=== PATIENT | female | born 1970 | race Caucasian/White ===

== ENCOUNTER 2022-10-28 08:45 | Observation (INO) | payer BC ==
[2022-10-22 13:32] LABS: Absolute Lymphocytes (CBC) 3.9 K/uL (0.7-4.9); Hematocrit 45.1 % (36.0-45.0); Lymphocytes % 34.8 % (15.3-44.8); MCV 87.4 fL (80-100); MPV 8.3 fL (7.6-11.3); RBC Red Blood Cell Count 5.17 M/uL (3.86-4.86)
[2022-10-22 13:38] LABS: Specific Gravity 1.017 (1.005-1.030); Urine Bacteria None Seen /HPF (<20); Urine Bilirubin NEGATIVE (Negative); Urine Blood Trace (Negative); Urine Clarity Clear (Clear); Urine Color Light-Yellow (Yellow); Urine Glucose NEGATIVE (Negative); Urine Mucus Slight /HPF (None Seen); Urine Protein NEGATIVE (Negative); Urine RBC <5 /HPF (None Seen); Urine Urobilinogen Normal (Normal); Urine pH 5.5 (5.0-7.0)
[2022-10-22 13:44] LABS: Protime INR 0.91
[2022-10-28] MEDS ORDERED: CEFAZOLIN SODIUM 2 GM/VIAL ONE (09:14)
[2022-10-28] MEDS ORDERED: Ringers Lactate 1,000 ML IV ONE ×2 (09:14→15:20)
[2022-10-28 09:25] LABS: SARS-CoV-2 Antigen Rapid Res Negative (Negative)
[2022-10-28] MEDS ORDERED: propofoL 200 MG/20 ML VIAL IV ONE (10:04)
[2022-10-28] MEDS ORDERED: FENTANYL CITR 250 MCG/5 ML ONE (10:05)
[2022-10-28] MEDS ORDERED: MIDAZOLAM HCL 2 MG/2 ML INJ ONE ×2 (10:05→17:09)
[2022-10-28] MEDS ORDERED: LIDOCAINE 2% MPF 5 ML VIAL ONE (10:05)
[2022-10-28] MEDS ORDERED: KETAMINE HCL 500 MG/5 ML VIAL ONE (10:05)
[2022-10-28] MEDS ORDERED: dexAMETHasone 10 MG/ML VIAL ONE (10:05)
[2022-10-28] MEDS ORDERED: NS 0.9% VIAL 20 ML ONE (10:05)
[2022-10-28] MEDS ORDERED: ROCURONIUM 50 MG/5 ML VIAL IV ONE ×2 (10:05→14:11)
[2022-10-28] MEDS ORDERED: ONDANSETRON 4 MG/2 ML VIAL ONE (10:06)
[2022-10-28] MEDS ORDERED: NA CHLORIDE 0.9% 100 ML IV ONE (10:27)
[2022-10-28] MEDS: VASOPRESSIN 20 UNIT/ML VIAL ONE ×4 (11:14→13:55)
[2022-10-28] MEDS: CEFAZOLIN SODIUM 1 GM/VIAL ONE ×2 (11:14→13:25)
[2022-10-28] MEDS ORDERED: NA CHLORIDE 0.9% 1,000 ML ONE (11:45)
[2022-10-28] MEDS ORDERED: LIDOCAINE 1% W/EPI 1:100,000 30 ML VIAL ONE (12:41)
[2022-10-28] MEDS: Ringers Lactate 1,000 ML IV ONE ×2 (13:40→13:45)
[2022-10-28] MEDS ORDERED: FENTANYL CITR 100 MCG/2 ML ONE (15:02)
[2022-10-28] MEDS ORDERED: NEOSTIGMINE 1 MG/ML -10 ML VIAL ONE (15:38)
[2022-10-28] MEDS ORDERED: GLYCOPYRROLATE 0.2 MG/ML SYR ONE (15:38)
[2022-10-28] MEDS ORDERED: PROMETHAZINE INJ 25 MG/ML AMP IV PRN (16:32)
[2022-10-28] MEDS ORDERED: MORPHINE 2 MG/ML SYR IV PRN (16:32)
[2022-10-28] MEDS: HYDROMORPHONE HCL 1 MG/ML INJ ONE ×4 (16:44→16:59)
--- NOTE | 2022-10-28 16:45 | P.BOP ---
Preoperative diagnosis: Stage 3 posterior wall defect, posterior enterocele, LEONEL Postoperative diagnosis: same, apical prolapse and perineocele Primary procedure: Post approach bilateral SSLF colpopexy, post wall, enterocele repairs Secondary procedure: perineocele repair, TO MUS (solyx mini sling) cystoscopy Medicaid Billing Clerk: Deidre Tolbret Estimated blood loss: 150 Specimen: none Findings: -1/-1/-3/6/thi/7/+1/+2/na, perineocele, Left UO Ballooning Anesthesia: General Complications: None Drain(s): Urinary catheter Implants: [place] dermis 8x6cm graft, TO-MUS (solyx) Fluids & blood products: UO 300.LR 1500 Transferred to: Recovery Room Condition: Good
[2022-10-28] MEDS ORDERED: Ringers Lactate 1,000 ML IV SCH (17:00)
--- OUTSIDE RECORDS SUMMARY | 2022-10-28 17:19 | XMS REPORT | Continuity of Care Document ---
:1970 Author Organization [facility] t Address [address] [place] [address] Care Team Providers Name Role Phone DENA Attending Clinician Unavailable Ki Oliva Attending Clinician [phone] DENA Admitting Clinician Unavailable Payers Payer Name Policy Type Policy Number Effective Date Expiration Date S [place] [id number] 2021 00:00:00 [facility] [id number] (EPO) Problems Condition Condition Condition Status Onset Resolution Last Treating Co mments Source Name Details Category Date Date Treatment Clinician Date Allergic Allergic Problem Active Sween y rhinitis Rhinitis 6-14 Commun i 00:00: ty 00 [facility] Gastroesop Gastroesop Problem Active S weeny hageal hageal 6-14 Communi reflux Reflux 00:00: ty disease Disease 00 Hospita without without l esophagiti Esophagiti Cl inics s s Body mass Body Mass Problem Active [facility] index 30+ Index 30+ 1-25 Comm uni - obesity - Obesity 00:00: ty 00 Hospita l Clinics Essential Essential Problem Active [facility] hypertensi Hypertensi 6-18 Co mmuni on on 00:00: ty 00 Hospita l Clinics Allergies, Adverse Reactions, Alerts Allergy Allergy Status Severity Reaction(s) Onset Inactive Treating Comm ents Source Name Type Date Date Clinician Paroxeti Allergy Active Moderate Dizziness Sw eeny ne to Communi substan ty e Hospita l Clinics Gentamic Allergy Active Moderate Eye swelling [facility] in to Communi substan ty e [facility]osp[facility] Clinics Lisinopr Allergy Active Mild to Rash [facility] il to moderate Communi substan ty e Hospita l Clinics Social History Smoking Status Start Date Stop Date Source Light Tobacco Smoker [facility] Medications Ordered Filled Start Stop Current Ordering Indication Dosage Frequency Signature Comments Components Source Medication Medication Date Date Medication? Clinician (SIG) Name Name Allergy Allergy No 2spray( Q1D Allergy [facility] Relief Relief s) Relief Communi (fluticason (fluticason (fluticaso ty e) 50 e) 50 ne) 50 Hospita mcg/actuati mcg/actuati mcg/actuat l on nasal on nasal ion nasal Cl inics spray,suspe spray,suspe spray,susp nsion Delta nsion Delta ension 2 sprays 2 sprays Delta 2 every day every day sprays by by every day intranasal intranasal by route. route. intranasal route. amlodipine amlodipine No 1 Q1D amlodipine [facility] 10 mg 10 mg 10 mg Communi tablet Take tablet Take tablet ty 1 tablet 1 tablet Take 1 Hospi ta every day every day tablet l by oral by oral every day Clin ics route. route. by oral route. Flucelvax Flucelvax No Flucelvax [facility] [place] Quad Quad Quad [facility] ty (PF) 60 mcg (PF) 60 mcg (PF) 60 Hospita (15 mcg x (15 mcg x mcg (15 l 4)/0.5 mL 4)/0.5 mL mcg x Clin ics IM syringe IM syringe 4)/0.5 mL PHARMACY PHARMACY IM syringe ADMINISTERE ADMINISTERE PHARMACY D D ADMINISTER ED omeprazole omeprazole No omeprazole [facility] prn prn prn [facility] Tylenol prn Tylenol prn No Tylenol [facility]n [facility] Allergy Allergy No 2spray( Q1D Allergy Swe jag[facility] Relief Relief s) Relief Communi (fluticason (fluticason (fluticaso ty e) 50 e) 50 ne) 50 Hospita mcg/actuati mcg/actuati mcg/actuat l on nasal on nasal ion nasal Cl inics spray,suspe spray,suspe spray,susp nsion Delta nsion Delta ension 2 sprays 2 sprays Delta 2 every day every day sprays by by every day intranasal intranasal by route. route. intranasal route. amlodipine amlodipine No 1 Q1D amlodipine [facility] 10 mg 10 mg 10 mg Communi tablet Take tablet Take tablet ty 1 tablet 1 tablet Take 1 Hospi ta every day every day tablet l by oral by oral every day Clin ics route. route. by oral route. Flucelvax Flucelvax No Flucelvax [place] Quad Quad Jaida [facility] ty (PF) 60 mcg (PF) 60 mcg (PF) 60 Hospita (15 mcg x (15 mcg x mcg (15 l 4)/0.5 mL 4)/0.5 mL mcg x Clin ics IM syringe IM syringe 4)/0.5 mL PHARMACY PHARMACY IM syringe ADMINISTERE ADMINISTERE PHARMACY D D ADMINISTER ED omeprazole omeprazole No omeprazole [place] prn prn prn Communi ty [facility] Tylenol prn Tylenol prn No Tylenol [place] prn Communi ty [facility] Allergy Allergy No 2spray( Q1D Allergy Swe jag[facility] Relief Relief s) Relief Communi (fluticason (fluticason (fluticaso ty e) 50 e) 50 ne) 50 Hospita mcg/actuati mcg/actuati mcg/actuat l on nasal on nasal ion nasal Cl inics spray,suspe spray,suspe spray,susp nsion Delta nsion Delta ension 2 sprays 2 sprays Delta 2 every day every day sprays by by every day intranasal intranasal by route. route. intranasal route. amlodipine amlodipine No 1 Q1D amlodipine [facility] 10 mg 10 mg 10 mg Communi tablet Take tablet Take tablet ty 1 tablet 1 tablet Take 1 Hospi ta every day every day tablet l by oral by oral every day Clin ics route. route. by oral route. Flucelvax Flucelvax No Flucelvax [place] Quad Quad Jaida [facility] ty (PF) 60 mcg (PF) 60 mcg (PF) 60 Hospita (15 mcg x (15 mcg x mcg (15 l 4)/0.5 mL 4)/0.5 mL mcg x Clin ics IM syringe IM syringe 4)/0.5 mL PHARMACY PHARMACY IM syringe ADMINISTERE ADMINISTERE PHARMACY D D ADMINISTER ED omeprazole omeprazole No omeprazole [place] prn prn prn Communi ty [facility] Tylenol prn Tylenol prn No Tylenol [place] prn Communi ty [facility] Allergy Allergy No 2spray( Q1D Allergy Swe jag[facility] Relief Relief s) Relief Communi (fluticason (fluticason (fluticaso ty e) 50 e) 50 ne) 50 Hospita mcg/actuati mcg/actuati mcg/actuat l on nasal on nasal ion nasal Cl inics spray,suspe spray,suspe spray,susp nsion Delta nsion Delta ension 2 sprays 2 sprays Delta 2 every day every day sprays by by every day intranasal intranasal by route. route. intranasal route. amlodipine amlodipine No amlodipine [facility] 10 mg 10 mg 10 mg Communi tablet TAKE tablet TAKE tablet ty 1 TABLET BY 1 TABLET BY TAKE 1 [facility] MOUTH EVERY MOUTH EVERY TABLET BY l DAY DAY MOUTH Clinics EVERY DAY omeprazole omeprazole No omeprazole [facility] [place] prn prn prn [facility] Tylenol prn Tylenol prn No Tylenol [place] prn [facility] Allergy Allergy No 2spray( Q1D Allergy Swe [facility] Relief Relief s) Relief Communi (fluticason (fluticason (fluticaso ty e) 50 e) 50 ne) 50 Hospita mcg/actuati mcg/actuati mcg/actuat l on nasal on nasal ion nasal Cl inics spray,suspe spray,suspe spray,susp nsion Delta nsion Delta ension 2 sprays 2 sprays Delta 2 every day every day sprays by by every day intranasal intranasal by route. route. intranasal route. amlodipine amlodipine No amlodipine [facility] 10 mg 10 mg 10 mg Communi tablet TAKE tablet TAKE tablet ty 1 TABLET BY 1 TABLET BY TAKE 1 Hospita MOUTH EVERY MOUTH EVERY TABLET BY l DAY DAY MOUTH Clinics EVERY DAY dexamethaso dexamethaso No 10mg dexamethas [facility] ne sodium ne sodium one sodium Communi phosphate phosphate phosphate ty 10 mg/mL 10 mg/mL 10 mg/mL [facility] injection injection injection l solution solution solution Cli nics Take 10 mg Take 10 mg Take 10 mg by by by injection injection injection route. route. route. fenofibrate fenofibrate No 1capsul Q1D fenofibrat [facility] micronized micronized e(s) e Com angela 134 mg 134 mg micronized ty capsule capsule 134 mg Hospita Take 1 Take 1 capsule l capsule capsule Take 1 Clinics every day every day capsule by oral by oral every day route for route for by oral 10 days. 10 days. route for 10 days. hydroxychlo hydroxychlo No hydroxychl [facility] roquine 200 roquine 200 oroquine Communi mg tablet 2 mg tablet 2 200 mg ty po first po first tablet 2 [facility] dose then 1 dose then 1 po first l po bid x 5 po bid x 5 dose then Clinics days days 1 po bid x 5 days ivermectin ivermectin No 3 ivermectin [facility] 3 mg tablet 3 mg tablet 3 mg C ommuni Take 3 Take 3 tablet ty tablets by tablets by Take 3 H ospita oral route oral route tablets by l for 5 days. for 5 days. oral route Clinics for 5 days. Kenalog 40 Kenalog 40 No 40mg Kenalog 40 [facility] mg/mL mg/mL mg/mL Communi suspension suspension suspension ty for for for Hospita injection injection injection l Take 40 mg Take 40 mg Take 40 mg Clinics by by by injection injection injection route. route. route. omeprazole omeprazole No omeprazole [facility] prn prn prn Communi ty Hospita l Clinics prednisone prednisone No prednisone [facility] 20 mg 20 mg 20 mg Communi tablet 3 PO tablet 3 PO tablet 3 ty First day, First day, PO First Hospita 2 PO Second 2 PO Second day, 2 PO l Day, 1 PO Day, 1 PO Second Cli nics qDay until qDay until Day, 1 PO finished finished qDay until finished Tylenol prn Tylenol prn No Tylenol [facility] prn Communi ty Hospita l Clinics Zithromax Zithromax No Zithromax [facility] Z-Suhas 250 Z-Suhas 250 Z-Suhas 250 Communi mg tablet mg tablet mg tablet ty TAKE 2 TAKE 2 TAKE 2 Hospita TABLETS TABLETS TABLETS l (500 MG) BY (500 MG) BY (500 MG) Clinics ORAL ROUTE ORAL ROUTE BY ORAL ONCE DAILY ONCE DAILY ROUTE ONCE FOR 1 DAY FOR 1 DAY DAILY FOR THEN 1 THEN 1 1 DAY THEN TABLET (250 TABLET (250 1 TABLET MG) BY ORAL MG) BY ORAL (250 MG) ROUTE ONCE ROUTE ONCE BY ORAL DAILY FOR 4 DAILY FOR 4 ROUTE ONCE DAYS DAYS DAILY FOR 4 DAYS amlodipine amlodipine No amlodipine [facility] 10 mg 10 mg 10 mg Communi tablet TAKE tablet TAKE tablet ty ONE (1) ONE (1) TAKE ONE Hospi ta TABLET(S) TABLET(S) (1) l BY MOUTH BY MOUTH TABLET(S) Cl inics ONCE A DAY. ONCE A DAY. BY MOUTH ONCE A DAY. Flonase Flonase No 1spray( Q1D Flonase [facility] Allergy Allergy s) Allergy Commun i Relief 50 Relief 50 Relief 50 ty mcg/actuati mcg/actuati mcg/actuat Hospita on nasal on nasal ion nasal l spray,suspe spray,suspe spray,susp Clinics nsion Delta nsion Delta ension 1 spray 1 spray Delta 1 every day every day spray by by every day intranasal intranasal by route. route. intranasal route. omeprazole omeprazole No omeprazole [facility] prn prn prn Communi ty Hospita l Clinics Tylenol prn Tylenol prn No Tylenol [facility] prn Communi ty Hospita l Clinics amlodipine amlodipine No amlodipine [facility] 10 mg 10 mg 10 mg Communi tablet TAKE tablet TAKE tablet ty ONE (1) ONE (1) TAKE ONE Hospi ta TABLET(S) TABLET(S) (1) l BY MOUTH BY MOUTH TABLET(S) Cl inics ONCE A DAY. ONCE A DAY. BY MOUTH ONCE A DAY. amoxicillin amoxicillin No 1 Q12H amoxicilli [facility] [phone] 875 Communi mg-potassiu mg-potassiu mg-potassi ty m m um Hospita clavulanate clavulanate clavulanat l 125 mg 125 mg e 125 mg Clinics tablet Take tablet Take tablet 1 tablet 1 tablet Take 1 every 12 every 12 tablet hours by hours by every 12 oral route. oral route. hours by oral route. estradiol estradiol No estradiol [facility] 0.01% (0.1 0.01% (0.1 0.01% (0.1 Communi mg/gram) mg/gram) mg/gram) ty vaginal vaginal vaginal Hospit a cream cream cream l INSERT 0.5 INSERT 0.5 INSERT 0.5 Clinics GRAM(S) IN GRAM(S) IN GRAM(S) IN VAGINA VAGINA VAGINA THREE TIMES THREE TIMES THREE WEEKLY. WEEKLY. TIMES WEEKLY. Flonase Flonase No 1spray( Q1D Flonase [facility] Allergy Allergy s) Allergy Commun i Relief 50 Relief 50 Relief 50 ty mcg/actuati mcg/actuati mcg/actuat Hospita on nasal on nasal ion nasal l spray,suspe spray,suspe spray,susp Clinics nsion Delta nsion Delta ension 1 spray 1 spray Delta 1 every day every day spray by by every day intranasal intranasal by route. route. intranasal route. omeprazole omeprazole No omeprazole [facility] prn prn prn Communi ty Hospita l Clinics Tylenol prn Tylenol prn No Tylenol [facility] prn Communi ty Hospita l Clinics amlodipine amlodipine No amlodipine [facility] 10 mg 10 mg 10 mg Communi tablet TAKE tablet TAKE tablet ty ONE (1) ONE (1) TAKE ONE Hospi ta TABLET(S) TABLET(S) (1) l BY MOUTH BY MOUTH TABLET(S) Cl inics ONCE A DAY. ONCE A DAY. BY MOUTH ONCE A DAY. estradiol estradiol No estradiol [facility] 0.01% (0.1 0.01% (0.1 0.01% (0.1 Communi mg/gram) mg/gram) mg/gram) ty vaginal vaginal vaginal Hospit a cream cream cream l INSERT 0.5 INSERT 0.5 INSERT 0.5 Clinics GRAM(S) IN GRAM(S) IN GRAM(S) IN VAGINA VAGINA VAGINA THREE TIMES THREE TIMES THREE WEEKLY. WEEKLY. TIMES WEEKLY. Flonase Flonase No 1spray( Q1D Flonase [facility] Allergy Allergy s) Allergy Commun i Relief 50 Relief 50 Relief 50 ty mcg/actuati mcg/actuati mcg/actuat Hospita on nasal on nasal ion nasal l spray,suspe spray,suspe spray,susp Clinics nsion Delta nsion Delta ension 1 spray 1 spray Delta 1 every day every day spray by by every day intranasal intranasal by route. route. intranasal route. omeprazole omeprazole No omeprazole [facility] prn prn prn Communi ty Hospita l Clinics Tylenol prn Tylenol prn No Tylenol [facility] prn Communi ty Hospita l Clinics Allergy Allergy No 2spray( Q1D Allergy [facility] Relief Relief s) Relief Communi (fluticason (fluticason (fluticaso ty e) 50 e) 50 ne) 50 Hospita mcg/actuati mcg/actuati mcg/actuat l on nasal on nasal ion nasal Cl inics spray,suspe spray,suspe spray,susp nsion Delta nsion Delta ension 2 sprays 2 sprays Delta 2 every day every day sprays by by every day intranasal intranasal by route. route. intranasal route. amlodipine amlodipine No amlodipine [facility] 5 mg tablet 5 mg tablet 5 mg C om[facility]i TAKE 1 TAKE 1 tablet ty TABLET BY TABLET BY TAKE 1 [facility] MOUTH EVERY MOUTH EVERY TABLET BY l DAY DAY MOUTH Clinics EVERY DAY Flucelvax Flucelvax No Flucelvax [facility] Quad Quad Quad [facility] ty (PF) 60 mcg (PF) 60 mcg (PF) 60 Hospita (15 mcg x (15 mcg x mcg (15 l 4)/0.5 mL 4)/0.5 mL mcg x Clin ics IM syringe IM syringe 4)/0.5 mL PHARMACY PHARMACY IM syringe ADMINISTERE ADMINISTERE PHARMACY D D ADMINISTER ED omeprazole omeprazole No omeprazole [facility] prn prn prn Communi ty [facility] Tylenol prn Tylenol prn No Tylenol [facility] Allergy Allergy No 2spray( Q1D Allergy Swe [facility] Relief Relief s) Relief Communi (fluticason (fluticason (fluticaso ty e) 50 e) 50 ne) 50 Hospita mcg/actuati mcg/actuati mcg/actuat l on nasal on nasal ion nasal Cl inics spray,suspe spray,suspe spray,susp nsion Delta nsion Delta ension 2 sprays 2 sprays Delta 2 every day every day sprays by by every day intranasal intranasal by route. route. intranasal route. amlodipine amlodipine No amlodipine [facility] 5 mg tablet 5 mg tablet 5 mg C om[facility]i TAKE 1 TAKE 1 tablet ty TABLET BY TABLET BY TAKE 1 [facility] MOUTH EVERY MOUTH EVERY TABLET BY l DAY DAY MOUTH Clinics EVERY DAY Flucelvax Flucelvax No Flucelvax [facility] [place] Quad Quad Quad [facility] ty (PF) 60 mcg (PF) 60 mcg (PF) 60 Hospita (15 mcg x (15 mcg x mcg (15 l 4)/0.5 mL 4)/0.5 mL mcg x Clin ics IM syringe IM syringe 4)/0.5 mL PHARMACY PHARMACY IM syringe ADMINISTERE ADMINISTERE PHARMACY D D ADMINISTER ED omeprazole omeprazole No omeprazole [facility] prn prn prn Communi [facility] Tylenol prn Tylenol prn No Tylenol [facility] prn [facility] Allergy Allergy No 2spray( Q1D Allergy Swe jag[facility] Relief Relief s) Relief Communi (fluticason (fluticason (fluticaso ty e) 50 e) 50 ne) 50 Hospita mcg/actuati mcg/actuati mcg/actuat l on nasal on nasal ion nasal Cl inics spray,suspe spray,suspe spray,susp nsion Delta nsion Delta ension 2 sprays 2 sprays Delta 2 every day every day sprays by by every day intranasal intranasal by route. route. intranasal route. amlodipine amlodipine No amlodipine [facility] 5 mg tablet 5 mg tablet 5 mg C om[facility]i TAKE 1 TAKE 1 tablet ty TABLET BY TABLET BY TAKE 1 [facility] MOUTH EVERY MOUTH EVERY TABLET BY l DAY DAY MOUTH Clinics EVERY DAY Flucelvax Flucelvax No Flucelvax [facility] [place] Quad Quad Quad [facility] ty (PF) 60 mcg (PF) 60 mcg (PF) 60 Hospita (15 mcg x (15 mcg x mcg (15 l 4)/0.5 mL 4)/0.5 mL mcg x Clin ics IM syringe IM syringe 4)/0.5 mL PHARMACY PHARMACY IM syringe ADMINISTERE ADMINISTERE PHARMACY D D ADMINISTER ED omeprazole omeprazole No omeprazole [facility] prn prn prn [facility] Tylenol prn Tylenol prn No Tylenol [facility] prn [facility] Allergy Allergy No 2spray( Q1D Allergy Swe jag[facility] Relief Relief s) Relief [facility] (fluticason (fluticason (fluticaso ty e) 50 e) 50 ne) 50 Hospita mcg/actuati mcg/actuati mcg/actuat l on nasal on nasal ion nasal Cl inics spray,suspe spray,suspe spray,susp nsion Delta nsion Delta ension 2 sprays 2 sprays Delta 2 every day every day sprays by by every day intranasal intranasal by route. route. intranasal route. amlodipine amlodipine No amlodipine [facility] 5 mg tablet 5 mg tablet 5 mg C om[facility]i TAKE 1 TAKE 1 tablet ty TABLET BY TABLET BY TAKE 1 [facility] MOUTH EVERY MOUTH EVERY TABLET BY l DAY DAY MOUTH Clinics EVERY DAY Flucelvax Flucelvax No Flucelvax [facility] [place] Quad Quad Quad Communi ty (PF) 60 mcg (PF) 60 mcg (PF) 60 Hospita (15 mcg x (15 mcg x mcg (15 l 4)/0.5 mL 4)/0.5 mL mcg x Clin ics IM syringe IM syringe 4)/0.5 mL PHARMACY PHARMACY IM syringe ADMINISTERE ADMINISTERE PHARMACY D D ADMINISTER ED omeprazole omeprazole No omeprazole [facility] prn prn prn Communi ty [facility]ics Tylenol prn Tylenol prn No Tylenol [facility] [place] prn Communi ty [facility] l Clinics Immunizations Ordered Immunization Filled Immunization Date Status Commen ts Source Name Name SARS-COV-2 SARS-COV-2 2021-04-09 Completed [facility] Communi ty (COVID-19) vaccine, (COVID-19) vaccine, 00:00:00 Hospital Clinics UNSPECIFIED UNSPECIFIED SARS-COV-2 SARS-COV-2 2021-04-09 Completed [facility] Communi ty (COVID-19) vaccine, (COVID-19) vaccine, 00:00:00 [facility] UNSPECIFIED UNSPECIFIED SARS-COV-2 SARS-COV-2 2021-04-09 Completed [place] Communi ty (COVID-19) vaccine, (COVID-19) vaccine, 00:00:00 [facility] UNSPECIFIED UNSPECIFIED COVID-19 COVID-19 2021-04-09 Completed [place] Communi ty (SARS-COV-2) (SARS-COV-2) 00:00:00 [facility] linics vaccine, unspecified vaccine, unspecified COVID-19 COVID-19 2021-04-09 Completed [place] Communi ty (SARS-COV-2) (SARS-COV-2) 00:00:00 [facility] linics vaccine, unspecified vaccine, unspecified COVID-19 COVID-19 2021-04-09 Completed [place] Communi ty (SARS-COV-2) (SARS-COV-2) 00:00:00 [facility] linics vaccine, unspecified vaccine, unspecified COVID-19 COVID-19 2021-04-09 Completed [place] Communi ty (SARS-COV-2) (SARS-COV-2) 00:00:00 [facility] linics vaccine, unspecified vaccine, unspecified COVID-19 COVID-19 2021-04-09 Completed [place] Communi ty (SARS-COV-2) (SARS-COV-2) 00:00:00 [facility] linics vaccine, unspecified vaccine, unspecified SARS-COV-2 SARS-COV-2 2021-03-09 Completed [place] Communi ty (COVID-19) vaccine, (COVID-19) vaccine, 00:00:00 Hospital Clinics UNSPECIFIED UNSPECIFIED SARS-COV-2 SARS-COV-2 2021-03-09 Completed [place] Communi ty (COVID-19) vaccine, (COVID-19) vaccine, 00:00:00 [facility] UNSPECIFIED UNSPECIFIED SARS-COV-2 SARS-COV-2 2021-03-09 Completed [place] Communi ty (COVID-19) vaccine, (COVID-19) vaccine, 00:00:00 [facility] UNSPECIFIED UNSPECIFIED COVID-19 COVID-19 2021-03-09 Completed [place] Communi ty (SARS-COV-2) (SARS-COV-2) 00:00:00 [facility] linics vaccine, unspecified vaccine, unspecified COVID-19 COVID-19 2021-03-09 Completed [place] Communi ty (SARS-COV-2) (SARS-COV-2) 00:00:00 [facility] linics vaccine, unspecified vaccine, unspecified COVID-19 COVID-19 2021-03-09 Completed [place] Communi ty (SARS-COV-2) (SARS-COV-2) 00:00:00 [facility] linics vaccine, unspecified vaccine, unspecified COVID-19 COVID-19 2021-03-09 Completed [place] Communi ty (SARS-COV-2) (SARS-COV-2) 00:00:00 [facility] linics vaccine, unspecified vaccine, unspecified COVID-19 COVID-19 2021-03-09 Completed [place] Communi ty (SARS-COV-2) (SARS-COV-2) 00:00:00 [facility] linics vaccine, unspecified vaccine, unspecified influenza, influenza, 2020-07-21 Completed [facility] Communi ty injectable, injectable, 00:00:00 Hospital Cli nics quadrivalent quadrivalent influenza, influenza, 2020-07-21 Completed [place] Communi ty injectable, injectable, 00:00:00 Hospital Cli nics quadrivalent quadrivalent influenza, influenza, 2020-07-21 Completed [place] Communi ty injectable, injectable, 00:00:00 Hospital Cli nics quadrivalent quadrivalent influenza, influenza, 2020-07-21 Completed [place] [facility] Communi ty injectable, injectable, 00:00:00 Hospital Cli nics quadrivalent quadrivalent influenza, influenza, 2020-07-21 Completed [place] Communi ty injectable, injectable, 00:00:00 Hospital Cli nics quadrivalent quadrivalent influenza, influenza, 2020-07-21 Completed [place] Communi ty injectable, injectable, 00:00:00 Hospital Cli nics quadrivalent quadrivalent influenza, influenza, 2020-07-21 Completed [place] Communi ty injectable, injectable, 00:00:00 Hospital Cli nics quadrivalent quadrivalent influenza, influenza, 2020-07-21 Completed [place] Communi ty injectable, injectable, 00:00:00 Hospital Cli nics quadrivalent quadrivalent influenza, influenza, 2020-07-21 Completed [place] Communi ty injectable, injectable, 00:00:00 Hospital Cli nics quadrivalent quadrivalent influenza, influenza, 2020-07-21 Completed [place] Communi ty injectable, injectable, 00:00:00 Hospital Cli nics quadrivalent quadrivalent influenza, influenza, 2020-07-21 Completed [place] Communi ty injectable, injectable, 00:00:00 Hospital Cli nics quadrivalent quadrivalent influenza, influenza, 2020-07-21 Completed [place] Communi ty injectable, injectable, 00:00:00 Hospital Cli nics quadrivalent quadrivalent Vital Signs Vital Name Observation Time Observation Value Comments Source BP Diastolic 2022-10-21 00:00:00 82 mm[Hg] [facility] Height 2022-10-21 00:00:00 60 [in_i] [facility] BP Systolic 2022-10-21 00:00:00 124 mm[Hg] [facility] BP Diastolic 2022-10-14 00:00:00 86 mm[Hg] [facility] Height 2022-10-14 00:00:00 60 [in_i] [facility] BMI (Body Mass 2022-10-14 00:00:00 33.2 kg/m2 [facility] BP Systolic 2022-10-14 00:00:00 124 mm[Hg] [facility] Body Weight 2022-10-14 00:00:00 2720 [oz_av] [facility] BP Diastolic 2022-04-15 00:00:00 84 mm[Hg] [facility] Height 2022-04-15 00:00:00 60 [in_i] [facility] BMI (Body Mass 2022-04-15 00:00:00 33.6 kg/m2 [facility]) [facility] BP Systolic 2022-04-15 00:00:00 132 mm[Hg] [facility] Body Weight 2022-04-15 00:00:00 2752 [oz_av] [facility] Height 2021-11-07 00:00:00 60 [in_i] [facility] BP Diastolic 2021-10-08 00:00:00 72 mm[Hg] [facility] Height 2021-10-08 00:00:00 60 [in_i] [facility] BMI (Body Mass 2021-10-08 00:00:00 32.6 kg/m2 [facility]) [facility] BP Systolic 2021-10-08 00:00:00 132 mm[Hg] [facility] Body Weight 2021-10-08 00:00:00 2672 [oz_av] [facility] BP Diastolic 2021-04-09 00:00:00 74 mm[Hg] [facility] Height 2021-04-09 00:00:00 60 [in_i] [facility] BMI (Body Mass 2021-04-09 00:00:00 32.6 kg/m2 [facility] Clinic s BP Systolic 2021-04-09 00:00:00 132 mm[Hg] [facility] Body Weight 2021-04-09 00:00:00 2672 [oz_av] [facility] BP Diastolic 2021-02-25 00:00:00 96 mm[Hg] [facility] [facility] Height 2021-02-25 00:00:00 60 [in_i] [facility] BMI (Body Mass 2021-02-25 00:00:00 32.7 kg/m2 [facility]) [facility] BP Systolic 2021-02-25 00:00:00 148 mm[Hg] [facility] Body Weight 2021-02-25 00:00:00 2680 [oz_av] [facility] BP Diastolic 2020-12-24 00:00:00 74 mm[Hg] [facility] Height 2020-12-24 00:00:00 60 [in_i] [facility] BMI (Body Mass 2020-12-24 00:00:00 32 kg/m2 [facility] BP Systolic 2020-12-24 00:00:00 114 mm[Hg] [facility] Body Weight 2020-12-24 00:00:00 2624 [oz_av] [facility] BP Diastolic 2020-11-26 00:00:00 84 mm[Hg] [facility] Height 2020-11-26 00:00:00 60 [in_i] [facility] s BMI (Body Mass 2020-11-26 00:00:00 31.8 kg/m2 [facility]) [facility] BP Systolic 2020-11-26 00:00:00 138 mm[Hg] [facility] Body Weight 2020-11-26 00:00:00 2608 [oz_av] [facility] Procedures Procedure Date / Time Performing Clinician Source Performed US, abdomen 2022-10-14 00:00:00 [facility] MAMMO, screening, 2022-04-15 00:00:00 [facility] munity digital, bilateral [facility] Partial Hysterectomy 2005-05-02 00:00:00 [facility] Removal of Tonsils [facility] Plan of Care Planned Activity Planned Date Details Comments Source Diagnostic Test 2022-10-21 helicobacter pylori, [facility] Pending 00:00:00 culture, unspecified [facility] specimen [code = helicobacter pylori, culture, unspecified specimen] Encounters Start End Encounter Admission Attending Care Care Encounter Source Date/Time Date/Time Type Type Clinicians Facility Department ID 2022-10-21 2022-10-21 Outpatient RAQUEL_R [facility] [id number] [place] 00:00:00 00:00:00 220 Commun i [facility] 2022-10-21 2022-10-21 Ki [facility] [place] [id number] [place] 00:00:00 00:00:00 [facility] DO: [address] [facility], [facility], [place], [address] RAQUEL , Ph. 2022-10-14 2022-10-14 Outpatient ERICKSON_R [facility] [id number] - [place] 00:00:00 00:00:00 213 Commun i ty Hospita [facility] 2022-10-14 2022-10-14 Ki [facility] [place] [id number] [place] 00:00:00 00:00:00 [facility] DO[facility] [address] [facility] [facility], [facility], [place], [address] RAQUEL , Ph. 2022-10-13 2022-10-13 Outpatient ERICKSON_R [facility] [id number] [place] 00:00:00 00:00:00 212 Commun i ty Hospita [facility] Clinics 2022-07-23 2022-07-23 Outpatient ERICKSON_R [facility] [id number] - [place] 00:00:00 00:00:00 921 Commun i ty Hospita l Clinics 2022-06-18 2022-06-18 Outpatient ERICKSON_R [facility] [id number] - [place] 00:00:00 00:00:00 [id number] Commun i ty Hospita l Clinics 2022-05-14 2022-05-14 Outpatient ERICKSON_R [facility] [id number] [place] 05:20:00 05:20:00 713 Commun i ty Hospita l Clinics 2022-04-15 2022-04-15 Outpatient ERICKSON_R [facility] [id number] [place] 09:58:00 09:58:00 614 Commun i ty Hospita l Clinics 2022-04-15 2022-04-15 Ki [facility] [place] 00:00:00 00:00:00 [facility] DO: [address] [facility] [address], HOSPITAL Clinic s [place], [facility], [address] RAQUEL , Ph. 2022-04-15 2022-04-15 Outpatient Raquel [facility] [id number] 00:00:00 00:00:00 Ki [id number] [place] [id number] 2022-01-25 2022-01-25 Outpatient ERICKSON_R [facility] [id number] [place] 01:14:00 01:14:00 326 Commun i ty Hospita l Clinics 2021-12-21 2021-12-21 Outpatient ERICKSON_R [facility] [id number] [place] 02:50:00 02:50:00 219 Commun i ty Hospita l Clinics 2021-11-29 2021-11-29 Outpatient ERICKSON_R [facility] [id number] - [place] 04:54:00 04:54:00 128 Commun i ty Hospita l Clinics 2021-11-16 2021-11-16 Outpatient ERICKSON_R [facility] [id number] - [place] 03:31:00 03:31:00 115 Commun i ty Hospita l Clinics 2021-11-07 2021-11-07 Outpatient ERICKSON_R [facility] [id number] - [place] 09:54:00 09:54:00 106 Commun i ty Hospita l Clinics 2021-11-07 2021-11-07 Ki [facility] [place] 00:00:00 00:00:00 [facility] ty DO: [address] [place], [place], [address] RAQUEL , Ph. 2021-11-07 2021-11-07 Outpatient Raquel [facility] [id number] 00:00:00 00:00:00 Ki Sears [id number] 2021-10-08 2021-10-08 Outpatient ERICKSON_R [facility] [id number] - [place] 04:22:00 04:22:00 207 Commun i ty Hospita l [facility] 2021-10-08 2021-10-08 Ki [facility] [place] [id number] [place] 00:00:00 00:00:00 [facility] ty DO: [address] [facility] [place], [place], [address] RAQUEL , Ph. 2021-10-08 2021-10-08 Outpatient Raquel [facility] [id number] 00:00:00 00:00:00 Ki Sears [id number] 2021-04-09 2021-04-09 Outpatient ERICKSON_R [facility] [id number] [place] 10:42:00 10:42:00 608 Commun i ty Hospita l Clinics 2021-04-09 2021-04-09 Ki [facility] [place] 00:00:00 00:00:00 [facility] ty DO: [address] [facility] [place] [place], [address] RAQUEL , Ph. [phone] 2021-04-09 2021-04-09 Outpatient Oliva, [facility] [id number] 00:00:00 00:00:00 Ki [id number] [place] [id number] 2021-04-09 2021-04-09 Outpatient Oliva, [facility] [id number] 00:00:00 00:00:00 Ki [id number] [place] [id number] 2021-04-09 2021-04-09 Outpatient Oliva, [facility] [id number] 00:00:00 00:00:00 Ki [id number] [place] [id number] 2021-02-25 2021-02-25 Outpatient ERICKSON_R [facility] [id number] [place] 09:51:00 09:51:00 426 Commun i ty Hospita l Clinics 2021-02-25 2021-02-25 Outpatient Oliva, [facility] [id number] 00:00:00 00:00:00 Ki [id number] [place] [id number] 2021-02-25 2021-02-25 Ki [facility] [place] 00:00:00 00:00:00 [facility] DO: [address] [facility], [place], [place], [address] RAQUEL , Ph. 2020-12-27 2020-12-27 Outpatient ERICKSON_R [facility] [id number] [place] 09:20:00 09:20:00 225 Commun i ty Hospita l Clinics 2020-12-24 2020-12-24 Outpatient ERICKSON_R [facility] [id number] [place] 05:54:00 05:54:00 222 Commun i ty Hospita l Clinics 2020-12-24 2020-12-24 Outpatient Oliva, [facility] [id number] 00:00:00 00:00:00 Ki [id number] [place] [id number] 2020-12-24 2020-12-24 Ki [facility] [place] 00:00:00 00:00:00 [facility] DO: [address] a [facility] [address], HOSPITAL Clinic s [place], [place] CL[place], [address] RAQUEL , Ph. [phone] 2020-11-29 2020-11-29 Outpatient ERICKSON_R [facility] [id number] [place] 10:33:00 10:33:00 128 Commun i ty Hospita l Clinics 2020-11-26 2020-11-26 Outpatient ERICKSON_R [facility] [id number] [place] 04:28:00 04:28:00 125 Commun i ty Hospita l Clinics 2020-11-26 2020-11-26 Outpatient Oliva, [facility] [id number] 00:00:00 00:00:00 Ki [id number] [place] [id number] 2020-11-26 2020-11-26 Outpatient Oliva, [facility] [id number] 00:00:00 00:00:00 Ki [id number] [place] [id number] 2020-11-26 2020-11-26 [facility] [place] 00:00:00 00:00:00 [facility]: [address] [facility] a [facility] G, HOSPITAL Clinic [place], [place], [address] RAQUEL , Ph. Results Test Description Test Time Test Comments Results Result Comments Source Basic metabolic 2000 panel - Serum or Plasma 2020-11-27 00:0 0:00 Test Item Value Reference Range Interpretation Comme nts Glucose [Mass/volume] in Serum or Plasma (test code = tnp 2345-7) Urea nitrogen [Mass/volume] in Serum or Plasma (test 10 mg/dL 6 -24 code = 3094-0) Creatinine [Mass/volume] in Serum or Plasma (test code = 1.03 mg/dL 0.57-1.00 H 2160-0) Glomerular filtration rate/1.73 sq M.predicted among 64 mL/min/1.73 >59 non-blacks [Volume Rate/Area] in Serum, Plasma or Blood by Creatinine-based formula (CKD-EPI) (test code = 43476-3) Glomerular filtration rate/1.73 sq M.predicted among 73 mL/min/1.73 >59 blacks [Volume Rate/Area] in Serum, Plasma or Blood by Creatinine-based formula (CKD-EPI) (test code = 12363-5) Urea nitrogen/Creatinine [Mass Ratio] in Serum or Plasma 10 9-23 (test code = 3097-3) Sodium [Moles/volume] in Serum or Plasma (test code = 142 mmol/L 548-185 8363-2) Potassium [Moles/volume] in Serum or Plasma (test code = tnp 2823-3) Chloride [Moles/volume] in Serum or Plasma (test code = 101 mmol/L 96-106 5-0) Carbon dioxide, total [Moles/volume] in Serum or Plasma 25 mmol/L 20-29 (test code = 2027-) Calcium [Mass/volume] in Serum or Plasma (test code = 9.0 mg/dL 8.7-10.2 56092-4) [facility]
[2022-10-28 17:27] VITALS: O2SAT 100
[2022-10-28 18:18] VITALS: BMI 33.4
--- NOTE | 2022-10-28 19:01 | OP ---
Date of Procedure: 10/28/2022 Surgeon: Bebe Jenkins MD Adjustment Examiner: Deidre Tolbert. Preoperative Diagnoses: Stage III posterior wall defect, posterior enterocele and stress urinary inc ontinence. Postoperative Diagnoses: Stage III posterior wall defect, posterior enterocele and stress urinary in continence, apical prolapse, and perineocele. Procedures Performed: Posterior approach bilateral sacrospinous ligament fixation, colpopexy using t he biologic graft augmentation, posterior wall repair, and enterocele repairs, perineocele repair, tr ansobturator mid urethral sling (Solyx Mini Sling), and cystoscopy. Estimated Blood Loss: 150. Specimens: No specimens. Anesthesia: General. Findings: Pop-Q -1, -1, -3, 6 thin 7, +1, +2, NA. Perineocele was present and left UO was balloonin g. No new urinary outflow obstruction at the ureters. Anesthesia: General. Complications: No complications. Drains: Ford catheter and vaginal packing. Implants: Waite Dermis graft 8 x 6 and a transobturator sling (Solyx). Fluids: 1500 LR. Urine Output: 300. Disposition: Transferred to the recovery room in stable condition. Procedure In Detail: The patient is a 51-year-old lady who presented with vaginal bulge symptoms exa m as above. After discussing and understanding all the options, alternatives, discussing conservativ e options including pessary, pelvic floor physical therapy, observation and reconstructive repair wit h vaginal approach. She wanted to proceed with vaginal reconstructive surgery. She also had stress urinary incontinence. She was evaluated and we consented her for a mid urethral sling and posterior wall repair as well as if needed anterior repair, fully understanding all the benefits and risks as m entioned in the consent. and sister were present at bedside and once this was done, she was taken back to OR placed in supine fashion on the operating table. 2 g of Ancef were given. SCDs wer e placed. The vulva, vagina, perineum, and lower abdomen were prepped and draped in a sterile fashio n. Time-out was done and the procedure started. Pop-Q was done with the bowel and it was very clear that the perineocele was significant and there wa s slight destruction of the external sphincter as well. The posterior enterocele was quite obvious a nd then the apical defect was almost to -3. So, discussed about all the consented procedures and luis eduardo n to perform all the consented procedures so proceed with this. The rationale for using the biologic graft augmented repair is that she needed bilateral sacrospinous fixation and if this was done with [place] tissue, then there would not be a tension-free repair and if the bilateral fixation was not do ne, then there would be recurrence in the apical compartment as well as higher anterior compartment p rolapse and so using a biologic graft and attaching it to the uterosacral ligaments at the apex and l aterally to the sacrospinous was going to be the plan to support it well. A posterior wall incision was made first on the perineum in chidi shape after injecting dilute vaso pressin. Then, a triangular incision was made in the posterior vaginal wall dissecting open the enti re distal 1/2 of the posterior wall, the perineal body area, and the entire perineum. Once laterally things were dissected, the deep transverse perinei were not together and were significantly separate d and there was external anal sphincter disruption to a certain degree as well, then on the top poste rior rectovaginal septum was attached from the perineal body specially and the left lateral aspect. Then, the apical part of the rectovaginal septum was detached from the apex where the hysterectomy va ginal cuff was present. So, once the rectovaginal septum was dissected free from the apex all the wa y to the level of the cuff, laterally all the way to both lateral sulci and inferiorly all the way to the perineal body. Then, the apex was visualized well. The enterocele was dissected open and then laterally dissect and dissection performed going towards the sacrospinous ligament on both sides. On ce the ischial spine was palpated and sacrospinous ligament was cleaned up through the medial and pos terior to the spine and the bowel was cleaned away in the pararectal space, first on the right, then on the left side, then, I was ready for the inlay graft. The biologic 8 x 6 graft was taken and fash ioned into a Y with 8 cm at the top, 3 sutures in the center, 1 in the center of the vaginal cuff, th en 2 on either sides. After the uterosacral remnants were picked up with Allis clamps, stitches were passed through here. All 3 were 2-0 PDS sutures. These were held on clamps, then Prolene sutures w ere taken on the Capio device and deployed in the mid ligament on both sides. Then, they were held o n clamps. Then once the graft was fashioned and soaked and brought in, the 3 central apical sutures to the cuff were anchored to the graft, then the sacrospinous sutures were anchored with a sroin sti tch and they were tied down. The posterior enterocele was repaired in a pursestring fashion with 3-0 Monocryl first from [id number] and then a pursestring fashion right above the level of the rectova ginal septum. Then coming down inferiorly, the rectovaginal septum was repaired using a 2-0 PDS in a continuous running fashion all the way down to the lower aspect. The perineal body was reconstructe d with 2 layers of 2-0 Vicryl with 3 independent [id number]-xc-zvff sutures. Once this was done, then the PDS suture was taken and the lateral attachments of the rectovaginal septum to the perineal body were reconstructed. Then, the graft was tethered to the sidewall on each side with 2 interrupted 2-0 PDS sutures on each side. Then, distally the distal part of the graft and 3 attachments was attached to the underlying fascia as well as the perineal body. Once these were all secured with PDS sutures, t shantal, the perineocele itself was repaired in 2 more further layers, went ahead from [id number], did a continuous running closure of the entire perineal body bringing together the remnants of the perine ocele or deep transverse perineum together. As there was good reconstruction, very small part of the external sphincter was left still weak in the perianal area. I did not do this dissection, but shor t of that, the rest of the perineal body length was at least 3.5 cm and had excellent support on rect ovaginal exam. Gloves were changed. The epithelium was closed [id number] at the level of the dist al posterior wall and then perineum closed with the help of 3-0 Vicryl in a continuous subcutaneous a nd subcuticular fashion. Rectal exam was performed, was negative and midurethral area was picked up on either side with the he lp of Allis clamps, injected with dilute vasopressin and then a 1 cm incision made in the mid urethra l area. Dissection carried to the ipsilateral obturator space hugging the pubic ramus and opening up the tract to lay the mesh, first on the right then on the left side. Then, the Solyx sling was load ed. Using the direction for entry parallel to the floor, the tip was not taken all the way to the ob turator space below the inferior pubic ramus. Then, the handle laid onto the opposite side flat in o rder to hug the inferior pubic ramus. Then went ahead and turned 45 degrees to enter the obturator m uscle. Once this was entered and I was happy with the location of the anchor, the anchor was deploye d and the needle pulled out. A tug was given to ensure that the anchor was in the right position. T shantal went over to the opposite side and anchored this as well in a similar fashion. Once this was don e, without deploying the anchor, tensioning was checked as it was slightly too tight, was loosened up , then deployed, made sure that this tensioning was appropriate after it was removed. Thorough irrig ation and suction were performed with antibiotic solution and closed with the help of 3-0 Monocryl in a continuous running horizontal mattress fashion. Thorough irrigation and suction were performed. The Ford was removed. Cystoscopy was performed wit h 30-degree lens normal saline, and both ureteric orifices were patent. The ballooning of the left d istal ureter was seen as seen in the preoperative evaluation with no evidence of any trauma or foreig n body in the bladder. Bladder was drained. Vaginal packing was placed. Ford was replaced. She w as recovered from anesthesia and taken to PACU in stable condition. She will follow up with me in 1 week and 6 weeks. The vaginal sulcus had no perforation or extrusion of the mesh. GORDON/OLIVIA Voice ID: [id number] Report ID: [id number]
[2022-10-28] MEDS ORDERED: ONDANSETRON 4 MG/2 ML VIAL IV PRN (21:05)
[2022-10-28] MEDS: ACETAMINOPHEN 500 MG TAB PO PRN (21:11)
[2022-10-29] MEDS: ACETAMINOPHEN 500 MG TAB PO PRN (06:09)
[2022-10-29 06:54] LABS: Absolute Lymphocytes (CBC) 2.8 K/uL (0.7-4.9); Hematocrit 38.6 % (36.0-45.0); MPV 8.5 fL (7.6-11.3); RBC Red Blood Cell Count 4.44 M/uL (3.86-4.86)
[2022-10-29 07:17] LABS: Potassium 4.1 mmol/L (3.5-5.1)
[2022-10-29] MEDS ORDERED: HOME MED 1 EA UNK (Levocetirizine Dihydrochloride [Xyzal] 5 MG Tablet) PO SCH (09:00)
[2022-10-29] MEDS ORDERED: HOME MED [FLUTICASONE 50MCG NASAL SPRAY] NAS SCH (09:00)
[2022-10-29] MEDS ORDERED: FLUTICASONE 50MCG NASAL SPRAY NAS SCH (09:00)
[2022-10-29] MEDS ORDERED: CETIRIZINE HCL 5 MG TABLET PO SCH (09:00)
[2022-10-29] MEDS ORDERED: AMLODIPINE 5 MG TAB PO SCH (09:00)
[2022-10-29 11:38] VITALS: BP 144/70; TEMP 98.5
== END 2022-10-29 11:05 | disposition home or self-care (01) ==
LOC: OR 08:45 → 2ND-WC 17:11
PROVIDERS: ADMIT Obstetrics & Gynecology; ATTEND Obstetrics & Gynecology
PROC: 0JQC0ZZ Repair Pelvic Region Subcutaneous Tissue and Fascia, Open Approach (ICD-10-PCS; 2022-10-28)
PROC: 0HQ9XZZ Repair Perineum Skin, External Approach (ICD-10-PCS; 2022-10-28)
PROC: 0UQF7ZZ Repair Cul-de-sac, Via Natural or Artificial Opening (ICD-10-PCS; 2022-10-28)
PROC: 0TSD0ZZ Reposition Urethra, Open Approach (ICD-10-PCS; 2022-10-28)
PROC: 0USG7ZZ Reposition Vagina, Via Natural or Artificial Opening (ICD-10-PCS; principal; 2022-10-28 11:15)
DX: N81.6 Rectocele (principal); N81.5 Vaginal enterocele; N39.3 Stress incontinence (female) (male); N81.81 Perineocele; I10 Essential (primary) hypertension; N87.9 Dysplasia of cervix uteri, unspecified; N80.9 Endometriosis, unspecified; Z20.822 Contact with and (suspected) exposure to COVID-19
CPT/HCPCS: 85025 ×2; 81001; 80048 ×2; 36415 ×3; 86900; 86850; 85610; 86901; 85730; 87811; 57282; 57250; 57268; 57288; J2704; J2710; J2001; J2250 ×2; J3010 ×2; J1100; A4216; J1170 ×2; J7120 ×4; J7030; J2405 ×2; J0690; G0378

== ENCOUNTER 2023-05-29 06:57 | Day surgery (SDC) | payer BC ==
[2023-05-28 16:45] LABS: Potassium 4.3 mEq/L (3.5-5.1)
[2023-05-29] MEDS ORDERED: Ringers Lactate 1,000 ML IV ONE (07:17)
[2023-05-29] MEDS ORDERED: LIDOCAINE 1% MPF 5 ML VIAL ONE (07:21)
[2023-05-29] MEDS ORDERED: propofoL 200 MG/20 ML VIAL IV ONE ×2 (07:21→08:29)
[2023-05-29] MEDS ORDERED: ATROPINE SULFATE 1 MG/ML INJ ONE (07:22)
[2023-05-29 09:00] VITALS: TEMP 97.6
[2023-05-29 09:01] VITALS: BP 138/74; O2SAT 97
--- NOTE | 2023-05-29 13:26 | EKG ---
Test Date: 2023-05-28 Test Time: 14:56:43 Cerner Analyst: GALDINO MEASUREMENT RESULTS: Intervals: Rate: 73 SC: 168 QRSD: 80 QT: 386 QTc: 425 Blum: P: 51 SC: 168 QRS: 36 T: 63 INTERPRETIVE STATEMENTS: Normal sinus rhythm Cannot rule out Anterior infarct, age undetermined Abnormal ECG No previous ECG available for comparison Electronically Signed On 05-29-23 13:24:30 CDT by David Jones
== END 2023-05-29 08:50 | disposition home or self-care (01) ==
LOC: OR 06:57
PROVIDERS: ATTEND Surgery
PROC: 0DBH8ZX Excision of Cecum, Via Natural or Artificial Opening Endoscopic, Diagnostic (ICD-10-PCS; principal; 2023-05-29 08:00)
DX: Z12.11 Encounter for screening for malignant neoplasm of colon (principal); D12.0 Benign neoplasm of cecum; K64.8 Other hemorrhoids
CPT/HCPCS: 93005; 80048; 36415; 88305; 45385; J2704 ×2; J0461; J2001; J7120